=== PATIENT | male | born 2005 | race Two or more races ===

== ENCOUNTER 2024-03-13 11:07 | Emergency (ER) | payer SELFPAY | END 2024-03-13 12:05 | disposition home or self-care (01) | LOC: MW.ED 11:07 | DX: K04.7 Periapical abscess without sinus (principal); Z79.2 Long term (current) use of antibiotics; Z79.891 Long term (current) use of opiate analgesic; Z75.8 Other problems related to medical facilities and other health care | CPT/HCPCS: 99282 ==